=== PATIENT | female | born 1950 | race Caucasian/White ===

== ENCOUNTER 2022-11-13 09:47 | Emergency (ER) | payer MEDICARE, OTHER ==
[~2022-11-13] VITALS: Ht 152.4 cm; Wt 68.0 kg
[2022-11-13] MEDS ORDERED: TRAMADOL HCL 50 MG TAB PO ONE (11:00)
[2022-11-13] MEDS ORDERED: HYDROCODON-ACE1 EA11 PO (11:35)
[2022-11-13] MEDS ORDERED: HYDROCODON-ACE1 EAC9 PO (12:22)
== END 2022-11-13 12:45 | disposition home or self-care (01) ==
LOC: ER 09:50
DX: S42.294A Other nondisplaced fracture of upper end of right humerus, initial encounter for closed fracture (principal); M25.561 Pain in right knee; W01.0XXA Fall on same level from slipping, tripping and stumbling without subsequent striking against object, initial encounter; Y93.01 Activity, walking, marching and hiking; Y92.89 Other specified places as the place of occurrence of the external cause; K21.9 Gastro-esophageal reflux disease without esophagitis
CPT/HCPCS: 99284

== ENCOUNTER 2023-10-31 16:54 | Outpatient (RCR) | payer MEDICARE ==
[~2023-10-31 16:54] MED LIST: B-121000 MC2; CRESTOR10 MG PO; D3-5000125 MCG; HYDROCODON-ACE1 EA11 PO; HYDROCODON-ACE1 EAC9 PO; LEVOTHYROXINE88 MCG PO
== END 2023-11-07 ==
LOC: PT 16:54
PROVIDERS: ATTEND Orthopaedic Surgery Foot and Ankle Surgery
DX: S82.851A Displaced trimalleolar fracture of right lower leg, initial encounter for closed fracture (principal); R26.89 Other abnormalities of gait and mobility; M25.671 Stiffness of right ankle, not elsewhere classified; M79.671 Pain in right foot